=== PATIENT | female | born 1945 | race Two or more races ===

== ENCOUNTER 2025-07-04 06:20 | Day surgery (SDC) | payer MEDICARE, MEDICAID, SELFPAY ==
--- NOTE | 2025-07-03 07:00 | EKG_ITS ---
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1945 Requested By: Estiven Bucio Order Number: [id number] Reading MD: Estiven Bucio Measurements Intervals [place] Rate: 60 P: 64 FL: 173 QRS: -69 QRSD: 114 T: 66 QT: 413 QTc: 413 Interpretive Statements SINUS RHYTHM POSSIBLE LEFT ATRIAL ENLARGEMENT [-0.1mV P WAVE IN V1/V2] LOW QRS VOLTAGE IN PRECORDIAL LEADS [QRS DEFLECTION < 1.0 mV IN CHEST LEADS] INCOMPLETE RIGHT BUNDLE BRANCH BLOCK [90+ ms QRS DURATION, TERMINAL R IN V1/V2, 40+ ms S IN I/aVL/V4/V5/V6] LEFT ANTERIOR FASCICULAR BLOCK [QRS AXIS <= -45, QR IN I, RS IN II] POSSIBLE LATERAL MYOCARDIAL INFARCTION , OF INDETERMINATE AGE [30 ms Q WAVE IN I/aVL/V5/V6] No previous ECG available for comparison /[id number]
[2025-07-03 08:10] VITALS: BMI 27.5
[2025-07-03 08:52] LABS: Basophils # (Auto) 0.0 Thou/mm3 (0.0-0.2); Basophils % (Auto) 0 % (0-2.5); Eosinophils # (Auto) 0.0 Thou/mm3 (0.0-0.5); Eosinophils % (Auto) 1 % (0-10); Hematocrit 46.3 % (36.0-46.0); Hemoglobin 14.6 g/dL (12.0-16.0); Immature Granulocytes Auto 0.00 Thou/mm3 (0.00-0.00); Lymphocytes # (Auto) 1.4 Thou/mm3 (1.0-4.8); Lymphocytes % (Auto) 32 % (10-50); Mean Corpuscular HGB Conc 31.5 g/dl (31.0-37.0); Mean Corpuscular Hemoglobin 28.5 pg (25.0-35.0); Mean Corpuscular Volume 90 fL (80-100); Monocytes # (Auto) 0.4 Thou/mm3 (0.0-0.8); Monocytes % (Auto) 9 % (0-12); Neutrophils # (Auto) 2.6 Thou/mm3 (1.8-7.7); Neutrophils % (Auto) 58 % (37-80); Nucleated Red Blood Cell # 0.00 Thou/mm3 (0.00-0.00); Nucleated Red Blood Cell % 0 /100 WBC (0); Platelet Count 187 Thou/mm3 (140-440); RDW Standard Deviation 43.8 fL (36.4-46.3); Red Blood Count 5.12 Miln/mm3 (4.00-5.20); White Blood Count 4.5 Thou/mm3 (3.6-11.0)
[2025-07-03 09:05] LABS: Alanine Aminotransferase 20 U/L (10-49); Albumin, Serum 4.3 gm/dL (3.4-4.8); Albumin/Globulin Ratio 1.5 (1.2-2.2); Alkaline Phosphatase 59 U/L (46-116); Anion Gap 9 (7-16); Aspartate Amino Transferase 19 U/L (0-34); BUN/Creatinine Ratio 12 Ratio (12-20); Bilirubin,Total 0.6 mg/dL (0.3-1.2); Blood Urea Nitrogen 15 mg/dL (9-23); Calcium 9.9 mg/dL (8.3-10.6); Calcium (Corrected) 9.9 mg/dL (8.5-10.1); Carbon Dioxide 28.1 mMol/L (20.0-31.0); Chloride 105 mMol/L (98-107); Creatinine (Component) 1.3 mg/dL (0.6-1.3); Estimated Creatinine Clearance 29.3 mL/min (>60); Globulin 2.9 gm/dL (2.3-3.5); Glucose 156 mg/dL (74-106); Osmolality,Calculated 286 (275-295); Potassium 4.2 mMol/L (3.4-5.1); Sodium 142 mMol/L (136-145); Total Protein 7.2 gm/dL (5.7-8.2); eGFR 42 See Note
[2025-07-03 10:22] LABS: INR 1.0 (0.9-1.3); Partial Thromboplastin Time 28.6 Seconds (22.0-36.0); Prothrombin Time 11.2 Seconds (9.0-12.2)
--- NOTE | 2025-07-03 13:48 | SUR.PREOP ---
EKG reviewed with Dr Mills.
[2025-07-04] VITALS (8 sets, daily range): BP systolic 130–173; BP diastolic 55–76; PULSE 52–82; RESP 16–20; TEMP 36.4–36.6; O2SAT 96–100; BMI 27.8
--- NOTE | 2025-07-04 09:30 | PD.SUROPNT ---
Date of Procedure 07/04/25 Pre Op Diagnosis Symptomatic varicose veins left lower extremity Post Op Diagnosis Same as preop diagnosis Procedure Varicose vein excisions left lower extremity through 10 separate incisions Findings All marked varicose veins were successfully removed or disrupted Procedure Description With the patient standing in the preop area all varicose veins to removed in the left leg were carefully marked with a sharpie pen. The patient was brought to the operating room and general anesthesia was induced. A #11 blade was then used to make a small skin sharron in the vicinity of the marked veins followed by an enlarging the incision bluntly with a mosquito clamp and sequentially grasping and excising the veins. But all veins were either removed or disrupted hemostasis was obtained and the wounds, the leg was cleaned and the incisions were reapproximated with Steri-Strips. Sterile dressing was applied followed by an Barrera bandage wrap. Patient woke up from anesthesia was with recovery in stable condition Anesthesia other (Laryngeal mask anesthesia) Pathology / specimen Other (Left leg varicose veins) Pathology comment: Left leg varicose veins Estimated Blood Loss 10 Condition Stable Disposition PACU Surgeon Estiven Greenberg MD Surgical Staff Operation Date: 07/04/25 08:30 <No data on this case meets the specified criteria>
--- NOTE | 2025-07-04 09:39 | SUR.PHASEI ---
0948 Patient arrived to recovery resting comfortably in [facility], on oxygen 6L via oxy mask, breathing unlabored, vital signs stable, denies pain, dressing intact to left leg; steri-strips, abd, kerlix roll, dmitriy wraps, no bleeding noted, bilateral dorsalis pedis pulses present when palpated, patient has good circulation to left lower extremity; skin color normal for patient and warm to touch, report received from Dr. Lee and Thiago HILLIARD
--- NOTE | 2025-07-04 11:13 | SUR.PHASEII ---
1113 Patient meets discharge criteria from recovery, awake and alert, breathing unlabored, vital signs stable, denies pain, dressing intact; no bleeding noted, voided in restroom prior to discharge, eating ice chips; denies nausea, able to dress herself into her clothing, discharge instructions given with the assistance of the hospital operator control room Omayra to patient and her , signed discharge instructions. Patient given all her belongings prior to discharge, transported via wheelchair and left in a private vehicle.
== END 2025-07-04 11:13 | disposition home or self-care (01) ==
PROVIDERS: Anesthesiology; PCP Physician Assistant; Referring Provider Surgery Vascular Surgery; Visit Provider Surgery Vascular Surgery
PROC: (CPT 37785; principal; 2025-07-04 08:30)
DX: I83.812 Varicose veins of left lower extremity with pain (principal); I10 Essential (primary) hypertension; Z01.810 Encounter for preprocedural cardiovascular examination; I45.10 Unspecified right bundle-branch block; I44.4 Left anterior fascicular block
CPT/HCPCS: 37765; 36415; 80053; 85025; 85610; 85730; 93005; A4217; A4649; J0131; J0690; J1100; J1885; J2405; J2704; J3010; J3490; J1596